=== PATIENT | male | born 1975 | race Caucasian/White ===

== ENCOUNTER 2016-08-05 18:25 | Emergency (ER) | payer BC ==
[2016-08-05] MEDS ORDERED: Ketorolac 30 MG/ML SDV IVPUSH ONE (18:50)
[2016-08-05] MEDS ORDERED: Morphine 10 MG/ML Syringe IVPUSH ONE (18:55)
[2016-08-05] MEDS ORDERED: Acetaminophen/oxyCODONE 325-5 MG Tab ONE (19:45)
[2016-08-05 20:27] VITALS: BP 119/62
--- NOTE | 2016-08-06 07:21 | CR ---
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 There are degenerative changes involving the glenohumeral joint. There is soft tissue calcification in the subdeltoid region consistent with calcific tendonitis or bursitis. There is narrowing of the subacromial space suggesting a chronic rotator cuff tear. No acute fracture or dislocation. [id number] [facility]
--- NOTE | 2016-08-06 07:25 | CT ---
DATE OF SERVICE: 08/05/16 CLINICAL DATA: Head injury UNENHANCED BRAIN CT: Multislice acquisition through the brain without IV contrast was performed. No masses or mass effect. No intracranial hemorrhage. No evidence of acute or subacute infarct. No fractures. There is mucosal thickening in the ethmoid and sphenoid sinuses consistent with chronic sinusitis. IMPRESSION: No acute intracranial abnormalities. [id number] [facility]
--- NOTE | 2016-08-06 07:30 | CT ---
DATE OF SERVICE: 08/05/16 CLINICAL DATA: Head injury UNENHANCED BRAIN CT: Multislice acquisition through the brain without IV contrast was performed. No masses or mass effect. No intracranial hemorrhage. No evidence of acute or subacute infarct. No fractures. There is mucosal thickening in the ethmoid and sphenoid sinuses consistent with chronic sinusitis. IMPRESSION: No acute intracranial abnormalities. [id number] [facility]
--- NOTE | 2016-08-06 07:33 | CT ---
DATE OF SERVICE: 08/05/16 CLINICAL DATA: Head injury FACIAL CT: Multislice axial acquisition was performed. There is mucosal thickening in the maxillary, ethmoid, sphenoid, and frontal sinuses consistent with chronic sinusitis. No air-fluid levels. No fractures. The globes and orbital contents appear intact. No other significant findings. IMPRESSION: No acute abnormalities. Findings consistent with chronic sinusitis. [id number] [facility]
--- NOTE | 2016-08-06 07:37 | CT ---
DATE OF SERVICE: 08/05/16 CLINICAL DATA: injury RIGHT SHOULDER CT: Multislice axial acquisition was performed. No acute fracture or dislocation. There are degenerative changes involving the AC joint. There is an osseous density adjacent to the AC joint consistent with old trauma. There are soft tissue calcifications in the subdeltoid region consistent with calcific tendonitis or bursitis. There are small sclerotic densities in the head of the humerus and coracoid process of the scapula most likely representing benign bone islands. IMPRESSION: No acute abnormalities. [id number] [facility]
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
== END 2016-08-05 21:15 | disposition home or self-care (01) ==
LOC: LB.ED 18:25
DX: S40.011A Contusion of right shoulder, initial encounter (principal); S00.531A Contusion of lip, initial encounter; X58.XXXA Exposure to other specified factors, initial encounter
CPT/HCPCS: 70450; 70486; 73030; 73200; 96374; 96375; 99284; A9270; J1885; J2270

== ENCOUNTER 2019-07-15 12:00 | Inpatient (IN) | payer BC ==
[2019-07-15] MEDS ORDERED: Sodium Chloride 0.9% 1,000 ML IV ONE (12:10)
[2019-07-15] MEDS ORDERED: Albuterol/Ipratropium 3.0-0.5 MG/3 ML Neb Soln NEB ONE (12:10)
[2019-07-15] MEDS ORDERED: methylPREDNISolone Sodium Succinate 125 MG/2 ML SDV IVPUSH ONE (12:10)
[2019-07-15] MEDS ORDERED: methylPREDNISolone Sodium Succinate 125 MG/2 ML SDV ONE (12:31)
[2019-07-15] MEDS ORDERED: Albuterol/Ipratropium 3.0-0.5 MG/3 ML Neb Soln ONE (12:32)
[2019-07-15] MEDS ORDERED: Sodium Chloride 0.9% 50 ML SDV FLUSH ONE (14:13)
[2019-07-15] MEDS ORDERED: Iopamidol 755 Mg/ML 100 ML Bottle IV SCH (14:15)
[2019-07-15] MEDS ORDERED: Aspirin 81 MG Tab.EC PO ONE (15:09)
[2019-07-15] MEDS: Enoxaparin 150 MG/1 ML Syringe SUBCUT SCH (16:22)
--- NOTE | 2019-07-15 16:41 | EDM.PDOC ---
ED HPI GENERAL MEDICAL PROBLEM - General Chief Complaint: General Stated Complaint: SOB, fever Time Seen by Provider: 07/15/19 12:05 Source of Information: Reports: Patient, Family History Limitations: Reports: No Limitations - History of Present Illness INITIAL COMMENTS - FREE TEXT/NARRATIVE: Fahad presented to the waiting room and I introduced myself. He stated that he feels exactly like when he had pneumonia previously. He has had some URI symptoms for at least 2 weeks on and off. He states that since at least he has felt worse in terms of his increased coughing. He feels that his chest wall is sore and he does endorse some sternal discomfort that seems to be pleuritic in nature. He also has had some nausea and vomiting over the last day or so and feels very dehydrated. He.denies any diaphoresis as well as any exertional chest discomfort. He is typically 1 to exert himself in terms of heavy physical labor without any issues. He has had no coronary arterial disease in the past, and has had at least paroxysmal atrial fibrillation since 2003. He has not had recent echocardiogram or cardiology follow-up. He was hospitalized here before for pneumonia. They would just as soon stay here instead of being transferred unless absolutely necessary. Treatments FIELD HEALTH OFFICER: Reports: Acetaminophen, NSAIDS Left Chest Pain Score (Numeric/FACES): 3 Left Shoulder Pain Score (Numeric/FACES): 3 - Related Data Allergies Allergy/AdvReac Type Severity Reaction Status Date / Time No Known Allergies Allergy Verified 07/15/19 16:19 Home Meds: Home Meds Levothyroxine Sodium 200 mcg PO ACBREAKFAST 08/05/16 [History] Past Medical History Cardiovascular History: Reports: Heart Murmur Musculoskeletal History: Reports: Other (See Below) Other Musculoskeletal History: Shoulder impingement Endocrine/Metabolic History: Reports: Hypothyroidism Oncologic (Cancer) History: Reports: Non-Hodgkin's Lymphoma - Past Surgical History HEENT Surgical History: Reports: Adenoidectomy, Tonsillectomy Neurological Surgical History: Reports: Thoracic Spine Musculoskeletal Surgical History: Reports: Shoulder Surgery Social & Family History - Family History Family Medical History: Noncontributory - Tobacco Use Smoking Status *Q: Never Smoker Second Hand Smoke Exposure: No - Caffeine Use Caffeine Use: Reports: None - Recreational Drug Use Recreational Drug Use: No ED ROS GENERAL - Review of Systems Review Of Systems: Comprehensive ROS is negative, except as noted in HPI. ED EXAM, GENERAL - Physical Exam Exam: See Below Exam Limited By: No Limitations General Appearance: Alert, Anxious, Mild Distress, Other (Does not appear septic but does appear to be mildly ill and a bit anxious upon arrival. He definitely appears volume depleted.) Eye Exam: Bilateral Eye: EOMI, PERRL Ears: Normal External Exam Nose: Normal Inspection Throat/Mouth: Normal Inspection, No Airway Compromise Head: Atraumatic, Normocephalic Neck: Normal Inspection, Supple, Non-Tender, Full Range of Motion Respiratory/Chest: No Respiratory Distress, Rales, Rhonchi, Wheezing, Other ( Lung sounds are remarkable for rales in the lower right base rhonchi throughout and end expiratory wheezes, all of which seem to improve significantly after DuoNeb) Cardiovascular: Tachycardia, Systolic Murmur (Very soft systolic murmur that is difficult to auscultate due to the above pulmonary sounds; he has been known to have a cardiac murmur for many many years), Irregularly Irregular GI/Abdominal: Normal Bowel Sounds, Soft, Non-Tender, No Distention, No Mass Back Exam: Normal Inspection, Full Range of Motion Extremities: Normal Inspection, Normal Range of Motion, Non-Tender, No Pedal Edema, Normal Capillary Refill Neurological: Alert, Oriented, CN II-XII Intact, Normal Cognition, Normal Gait, No Motor/Sensory Deficits Psychiatric: Normal Affect, Normal Mood Skin Exam: Warm, Dry, Intact, Normal Color, No Rash Lymphatic: No Adenopathy Course - Vital Signs Text/Narrative:: Discussed potential treatment options for try initially while in the waiting room assuming that he had a pneumonia more than anything. His case became complicated by a mildly elevated troponin. In review of his cardiac history, he had not had recent cardiac consultation or echocardiogram. His clinical picture did not fit with a pure pneumonia. I did call [facility] to discuss whether.we should continue to manage him here in [place]. After extensive discussion with the ER physician, we decided together to obtain pulmonary CTA as well as a recheck troponin. The receiving physician did not feel comfortable excepting because it did not appear to be cardiac related. I did call the ALS team from [place] and they arrived promptly. I apologized for the wait, and because his CT showed probable subsegmental pulmonary embolus with minimal filling defects of his segmental pulmonary arteries bilaterally, along with definite right lower lobe limited consolidation with air bronchogram. I discussed this with the radiologist personally, and explained this carefully to the patient and his . His delta troponin was actually less and the patient noted that his chest pain had been ongoing for at least a couple of weeks related to his coughing in his opinion. We discussed risks and benefits of trying to transfer him in because he is such a large gentleman, he certainly would not fit in a helicopter. The other ambulance crew in [place] was called out it, so I apologized to the gentleman for the inconvenience, and sent them back so there would at least be 1 ambulance available. I think them further time, but clearly our BLS team could bring him to the airport for fixed wing transport in case of any indication for such. He otherwise felt comfortable with monitoring here. His sats remained 99% and he felt significantly better after a nebulizer treatment and, actually a fluid bolus. His lactate appeared within normal limits, and his electrolytes and other labs were further reassuring. I discussed that I would be in-house overnight and that he should be sufficiently covered with Lovenox and antimicrobials. We decided together to watch him here carefully, particularly given that we would be able to provide an echocardiogram in the morning. I also explained anticoagulation options, and we could certainly start apixaban tomorrow after a couple of 1 mg/kg subcutaneous dosages of Lovenox. We will continue to monitor him, and our associate professor of radiology was kind enough to place an order for a creatinine and a recheck PE study in 6 weeks as recommended by radiology. Last Recorded V/S: Last Vital Signs Temp 100.3 F 07/15/19 15:21 Pulse 118 H 07/15/19 15:21 Resp 20 07/15/19 15:21 BP 140/81 07/15/19 15:21 Pulse Ox 97 07/15/19 15:21 - Orders/Labs/Meds Orders: Active Orders 24 hr Category Date Time Status EKG Documentation Completion [RC] ASDIRECTED Care 07/15/19 12:09 Active RT Aerosol Therapy [RC] ASDIRECTED Care 07/15/19 12:11 Active Chest 2V [CR] Stat Exams 07/15/19 12:09 Taken Chest w Cont [CT] Stat Exams 07/15/19 14:07 Taken CULTURE BLOOD [BC] Stat Lab 07/15/19 14:35 Received Enoxaparin [Lovenox] Med 07/15/19 15:15 Active 150 mg SUBCUT Q12H Iopamidol [Isovue-370 (76%)] Med 07/15/19 14:15 Active 100 ml IV . DIRECTED Isolation [COMM] Routine Oth 07/15/19 12:09 Active Medication Orders Enoxaparin Sodium (Lovenox) 150 mg SUBCUT Q12H KEVIN Last Admin: 07/15/19 16:22 Dose: 150 mg Iopamidol (Isovue-370 (76%)) 100 ml IV . DIRECTED [facility] Labs: Laboratory Tests 07/15/19 07/15/19 07/15/19 Range/Units 12:30 12:30 12:30 WBC 6.9 (4.0-11.0) K/uL RBC 5.05 (4.50-6.50) M/uL Hgb 14.5 (13.0-18.0) g/dL Hct 42.6 (40.0-54.0) % MCV 84 (76-96) fL MCH 28.7 (27.0-32.0) pg MCHC 34.0 (31.0-35.0) g/dL RDW 14.9 (11.0-16.0) % Plt Count 112 L D (150-400) K/uL MPV 11.3 H (6.0-10.0) fL Neut % (Auto) 91.4 H (45.0-70.0) % Lymph % (Auto) 4.0 L (20.0-40.0) % Baker % (Auto) 4.0 (3.0-10.0) % Eos % (Auto) 0.3 L (1.0-5.0) % Baso % (Auto) 0.3 (0.0-0.5) % Neut # (Auto) 6.33 (2.00-7.50) K/uL Lymph # (Auto) 0.28 L (1.50-4.00) K/uL Baker # (Auto) 0.28 (0.20-0.80) K/uL Eos # (Auto) 0.02 L (0.04-0.40) K/uL Baso # (Auto) 0.02 (0.02-0.10) K/uL D-Dimer, Quantitative (0-400) ng/mL Sodium (136-145) mmol/L Potassium (3.5-5.1) mmol/L Chloride (98-107) mmol/L Carbon Dioxide (21.0-32.0) mmol/L Anion Gap (5.0-15.0) mmol/L BUN (8-26) mg/dL Creatinine (0.70-1.30) mg/dL Est Cr Clr Drug Dosing mL/min Estimated GFR (MDRD) (>60) MLS/MIN BUN/Creatinine Ratio (6-25) Glucose (74-100) mg/dL Lactic Acid (0.4-2.0) mmol/L Calcium (8.5-10.1) mg/dL Magnesium (1.8-2.4) mg/dL Total Bilirubin (0.0-1.0) mg/dL AST (15-37) U/L ALT (12-78) U/L Alkaline Phosphatase (46-116) U/L Troponin I 0.264 H* D (0.000-0.060) ng/mL C-Reactive Protein 152.9 H (0.0-3.0) mg/L B-Natriuretic Peptide 2167 H (0-125) pg/mL Total Protein (6.4-8.2) g/dL Albumin (3.4-5.0) g/dL Globulin (2.2-4.2) g/dL Albumin/Globulin Ratio (0.8-2.0) Urine Color Urine Appearance (CLEAR) Urine pH (5.0-8.0) Ur Specific [place] (1.003-1.030) Urine Protein (NEGATIVE) mg/dL Urine Glucose (UA) (NEGATIVE) mg/dL Urine Ketones (NEGATIVE) mg/dL Urine Occult Blood (NEGATIVE) Urine Nitrite (NEGATIVE) Urine Bilirubin (NEGATIVE) Urine Urobilinogen (0.2-1.0) E.U./dL Ur Leukocyte Esterase (NEGATIVE) Urine RBC /HPF Urine WBC /HPF Ur Squamous Epith Cells /HPF Urine Mucus /HPF 07/15/19 07/15/19 07/15/19 Range/Units 12:52 13:22 14:35 WBC (4.0-11.0) K/uL RBC (4.50-6.50) M/uL Hgb (13.0-18.0) g/dL Hct (40.0-54.0) % MCV (76-96) fL MCH (27.0-32.0) pg MCHC (31.0-35.0) g/dL RDW (11.0-16.0) % Plt Count (150-400) K/uL MPV (6.0-10.0) fL Neut % (Auto) (45.0-70.0) % Lymph % (Auto) (20.0-40.0) % Baker % (Auto) (3.0-10.0) % Eos % (Auto) (1.0-5.0) % Baso % (Auto) (0.0-0.5) % Neut # (Auto) (2.00-7.50) K/uL Lymph # (Auto) (1.50-4.00) K/uL Baker # (Auto) (0.20-0.80) K/uL Eos # (Auto) (0.04-0.40) K/uL Baso # (Auto) (0.02-0.10) K/uL D-Dimer, Quantitative 807 H (0-400) ng/mL Sodium 138 (136-145) mmol/L Potassium 4.0 (3.5-5.1) mmol/L Chloride 101 (98-107) mmol/L Carbon Dioxide 27.0 (21.0-32.0) mmol/L Anion Gap 14.0 (5.0-15.0) mmol/L BUN 16 D (8-26) mg/dL Creatinine 1.07 D (0.70-1.30) mg/dL Est Cr Clr Drug Dosing 118.38 mL/min Estimated GFR (MDRD) > 60 (>60) MLS/MIN BUN/Creatinine Ratio 15.0 (6-25) Glucose 104 H (74-100) mg/dL Lactic Acid 1.5 (0.4-2.0) mmol/L Calcium 8.2 L (8.5-10.1) mg/dL Magnesium 2.1 (1.8-2.4) mg/dL Total Bilirubin 1.9 H D (0.0-1.0) mg/dL AST 30 (15-37) U/L ALT 42 (12-78) U/L Alkaline Phosphatase 91 (46-116) U/L Troponin I (0.000-0.060) ng/mL C-Reactive Protein (0.0-3.0) mg/L B-Natriuretic Peptide (0-125) pg/mL Total Protein 6.9 (6.4-8.2) g/dL Albumin 3.9 (3.4-5.0) g/dL Globulin 3.0 (2.2-4.2) g/dL Albumin/Globulin Ratio 1.3 (0.8-2.0) Urine Color Urine Appearance (CLEAR) Urine pH (5.0-8.0) Ur Specific [place] (1.003-1.030) Urine Protein (NEGATIVE) mg/dL Urine Glucose (UA) (NEGATIVE) mg/dL Urine Ketones (NEGATIVE) mg/dL Urine Occult Blood (NEGATIVE) Urine Nitrite (NEGATIVE) Urine Bilirubin (NEGATIVE) Urine Urobilinogen (0.2-1.0) E.U./dL Ur Leukocyte Esterase (NEGATIVE) Urine RBC /HPF Urine WBC /HPF Ur Squamous Epith Cells /HPF Urine Mucus /HPF 07/15/19 07/15/19 Range/Units 14:35 16:00 WBC (4.0-11.0) K/uL RBC (4.50-6.50) M/uL Hgb (13.0-18.0) g/dL Hct (40.0-54.0) % MCV (76-96) fL MCH (27.0-32.0) pg MCHC (31.0-35.0) g/dL RDW (11.0-16.0) % Plt Count (150-400) K/uL MPV (6.0-10.0) fL Neut % (Auto) (45.0-70.0) % Lymph % (Auto) (20.0-40.0) % Baker % (Auto) (3.0-10.0) % Eos % (Auto) (1.0-5.0) % Baso % (Auto) (0.0-0.5) % Neut # (Auto) (2.00-7.50) K/uL Lymph # (Auto) (1.50-4.00) K/uL Baker # (Auto) (0.20-0.80) K/uL Eos # (Auto) (0.04-0.40) K/uL Baso # (Auto) (0.02-0.10) K/uL D-Dimer, Quantitative (0-400) ng/mL Sodium (136-145) mmol/L Potassium (3.5-5.1) mmol/L Chloride (98-107) mmol/L Carbon Dioxide (21.0-32.0) mmol/L Anion Gap (5.0-15.0) mmol/L BUN (8-26) mg/dL Creatinine (0.70-1.30) mg/dL Est Cr Clr Drug Dosing mL/min Estimated GFR (MDRD) (>60) MLS/MIN BUN/Creatinine Ratio (6-25) Glucose (74-100) mg/dL Lactic Acid (0.4-2.0) mmol/L Calcium (8.5-10.1) mg/dL Magnesium (1.8-2.4) mg/dL Total Bilirubin (0.0-1.0) mg/dL AST (15-37) U/L ALT (12-78) U/L Alkaline Phosphatase (46-116) U/L Troponin I 0.256 H* (0.000-0.060) ng/mL C-Reactive Protein (0.0-3.0) mg/L B-Natriuretic Peptide (0-125) pg/mL Total Protein (6.4-8.2) g/dL Albumin (3.4-5.0) g/dL Globulin (2.2-4.2) g/dL Albumin/Globulin Ratio (0.8-2.0) Urine Color Yellow Urine Appearance Clear (CLEAR) Urine pH 5.5 (5.0-8.0) Ur Specific [place] 1.015 (1.003-1.030) Urine Protein 100 H (NEGATIVE) mg/dL Urine Glucose (UA) Negative (NEGATIVE) mg/dL Urine Ketones Trace H (NEGATIVE) mg/dL Urine Occult Blood Negative (NEGATIVE) Urine Nitrite Negative (NEGATIVE) Urine Bilirubin Small H (NEGATIVE) Urine Urobilinogen >=8.0 H (0.2-1.0) E.U./dL Ur Leukocyte Esterase Negative (NEGATIVE) Urine RBC Not seen /HPF Urine WBC 0-5 H /HPF Ur Squamous Epith Cells Few /HPF Urine Mucus Rare /HPF Meds: Medications Generic Name Dose Route Start Last Admin Trade Name Fredanial PRN Reason Stop Dose Admin Enoxaparin Sodium 150 mg 07/15/19 15:15 07/15/19 16:22 Lovenox SUBCUT 150 mg Q12H KEVIN Administration Iopamidol 100 ml 07/15/19 14:15 Isovue-370 (76%) IV . DIRECTED KEVIN Discontinued Medications Generic Name Dose Route Start Last Admin Trade Name Freq PRN Reason Stop Dose Admin Albuterol/Ipratropium 3 ml 07/15/19 12:10 07/15/19 12:32 Duoneb 3.0-0.5 Mg/3 Ml NEB 07/15/19 12:11 3 ml ONETIME ONE Administration Albuterol/Ipratropium Confirm 07/15/19 12:32 07/15/19 13:29 Duoneb 3.0-0.5 Mg/3 Ml Administered 07/15/19 12:33 Not Given Dose 3 ml .ROUTE .STK-MED ONE Aspirin 162 mg 07/15/19 15:09 07/15/19 16:23 Halfprin PO 07/15/19 15:10 162 mg ONETIME ONE Administration Sodium Chloride 1,000 mls @ 999 mls/hr 07/15/19 12:10 07/15/19 12:40 Normal Saline IV 07/15/19 13:10 999 mls/hr .BOLUS ONE Administration Methylprednisolone Sodium Succinate 125 mg 07/15/19 12:10 07/15/19 12:50 Solu-Medrol IVPUSH 07/15/19 12:11 125 mg ONETIME ONE Administration Methylprednisolone Sodium Succinate Confirm 07/15/19 12:31 Solu-Medrol Administered 07/15/19 12:32 Dose 125 mg .ROUTE .STK-MED ONE Sodium Chloride 50 ml 07/15/19 14:13 Normal Saline FLUSH 07/15/19 14:14 ONETIME ONE Departure - Departure Time of Disposition: 15:15 Disposition: Admitted As Inpatient 65 Condition: Fair Clinical Impression: PE, Pulmonary embolism - Discharge Information Referrals: PCP,None [Primary Care Provider] - Sepsis Event Note - Evaluation Sepsis Screening Result: Possible Sepsis Risk - Focused Exam Vital Signs: Vital Signs Temp Pulse Resp BP Pulse Ox 07/15/19 15:21 100.3 F 118 H 20 140/81 97 07/15/19 12:17 100.8 F H 103 H 20 146/100 H 98 Date Exam was Performed: 07/15/19 Time Exam was Performed: 16:36 - My Orders Last 24 Hours: My Active Orders 07/15/19 12:09 EKG Documentation Completion [RC] ASDIRECTED Chest 2V [CR] Stat Isolation [COMM] Routine 07/15/19 12:11 RT Aerosol Therapy [RC] ASDIRECTED 07/15/19 14:07 Chest w Cont [CT] Stat 07/15/19 14:15 Iopamidol [Isovue-370 (76%)] 100 ml IV . DIRECTED 07/15/19 14:35 CULTURE BLOOD [BC] Stat 07/15/19 15:15 Enoxaparin [Lovenox] 150 mg SUBCUT Q12H - Assessment/Plan Last 24 Hours: My Active Orders 07/15/19 12:09 EKG Documentation Completion [RC] ASDIRECTED Chest 2V [CR] Stat Isolation [COMM] Routine 07/15/19 12:11 RT Aerosol Therapy [RC] ASDIRECTED 07/15/19 14:07 Chest w Cont [CT] Stat 07/15/19 14:15 Iopamidol [Isovue-370 (76%)] 100 ml IV . DIRECTED 07/15/19 14:35 CULTURE BLOOD [BC] Stat 07/15/19 15:15 Enoxaparin [Lovenox] 150 mg SUBCUT Q12H
[2019-07-15] MEDS ORDERED: Albuterol/Ipratropium 3.0-0.5 MG/3 ML Neb Soln NEB PRN (17:04)
[2019-07-15] MEDS ORDERED: HYDROmorphone 2 MG/ML Syringe IV PRN (17:04)
[2019-07-15] MEDS ORDERED: Ondansetron 4 MG/2 ML SDV IV PRN (17:04)
[2019-07-15] MEDS ORDERED: Sodium Chloride 0.9% 500 ML IV ONE (17:04)
[2019-07-15] MEDS ORDERED: D5 1/2 NS w/ 20 mEq/L KCl 1,000 ML IV SCH (17:15)
--- NOTE | 2019-07-15 18:31 | CR ---
DATE OF SERVICE: 07/15/19 CLINICAL DATA: fever PA AND LATERAL CHEST: Comparison is made to a prior exam dated 11/21/14. The heart size is normal. There is a poorly defined infiltrate with consolidation in the right lower lobe , consistent with pneumonia. The lungs are otherwise clear. No pneumothorax. No pleural effusions. Follow-up exam is recommended. [id number] MTDD
[2019-07-15] MEDS: Piperacillin/Tazobactam 4.5 GM in Sodium Chloride 0.9% 100 ML IV SCH (19:24)
--- NOTE | 2019-07-15 19:44 | PCM.HP.2 ---
H&P History of Present Illness - General Date of Service: 07/15/19 Admit Problem/Dx: Admission Diagnosis/Problem Admission Diagnosis/Problem PE, Pulmonary embolism - History of Present Illness Initial Comments - Free Text/Narative: Please see previous ER documentation for details and, obviously, I wish to accept that note as my H&P without any modifications. Left Chest Pain Score (Numeric/FACES): 3 Left Shoulder Pain Score (Numeric/FACES): 1 - Related Data Allergies/Adverse Reactions: Allergies Allergy/AdvReac Type Severity Reaction Status Date / Time No Known Allergies Allergy Verified 07/16/19 21:40 Home Medications: Home Meds Levothyroxine Sodium 200 mcg PO ACBREAKFAST 08/05/16 [History] Amoxicillin 500 mg PO BID 07/16/19 [History] Amoxicillin/Potassium Clav [Augmentin 875-125 Tablet] 1 tab PO BID 07/16/19 [ History] Apixaban [Eliquis] 10 mg PO DAILY 07/16/19 [History] Past Medical History HEENT History: Reports: None Cardiovascular History: Reports: Heart Murmur Musculoskeletal History: Reports: Osteoarthritis, Other (See Below) Other Musculoskeletal History: Shoulder impingement Endocrine/Metabolic History: Reports: Hypothyroidism Oncologic (Cancer) History: Reports: Non-Hodgkin's Lymphoma - Infectious Disease History Infectious Disease History: Reports: Shingles - Past Surgical History HEENT Surgical History: Reports: None Cardiovascular Surgical History: Reports: None Endocrine Surgical History: Reports: None Neurological Surgical History: Reports: Thoracic Spine Musculoskeletal Surgical History: Reports: Shoulder Surgery, Other (See Below) Other Musculoskeletal Surgeries/Procedures:: Back Surgery 06/2008 Social & Family History - Family History Family Medical History: Noncontributory - Tobacco Use Smoking Status *Q: Never Smoker Second Hand Smoke Exposure: No - Caffeine Use Caffeine Use: Reports: Soda - Alcohol Use Days Per Week of Alcohol Use: 1 Number of Drinks Per Day: 1 Total Drinks Per Week: 1 Date of Last Drink: 07/10/19 - Recreational Drug Use Recreational Drug Use: No H&P Review of Systems - Review of Systems: Review Of Systems: Comprehensive ROS is negative, except as noted in HPI. Exam - Exam Exam: See Below - Vital Signs Vital Signs: Last Vital Signs Temp 100.6 F 07/15/19 16:56 Pulse 121 H 03/15/20 16:56 Resp 20 07/15/19 16:56 BP 81/47 L 07/15/19 16:56 Pulse Ox 95 07/15/19 16:56 Weight: 33 lb 3.2 oz - Patient Data Lab Results Last 24 hrs: Laboratory Results - last 24 hr 07/15/19 07/15/19 07/15/19 Range/Units 12:30 12:30 12:30 WBC 6.9 (4.0-11.0) K/uL RBC 5.05 (4.50-6.50) M/uL Hgb 14.5 (13.0-18.0) g/dL Hct 42.6 (40.0-54.0) % MCV 84 (76-96) fL MCH 28.7 (27.0-32.0) pg MCHC 34.0 (31.0-35.0) g/dL RDW 14.9 (11.0-16.0) % Plt Count 112 L D (150-400) K/uL MPV 11.3 H (6.0-10.0) fL Neut % (Auto) 91.4 H (45.0-70.0) % Lymph % (Auto) 4.0 L (20.0-40.0) % [place] % (Auto) 4.0 (3.0-10.0) % Eos % (Auto) 0.3 L (1.0-5.0) % Baso % (Auto) 0.3 (0.0-0.5) % Neut # (Auto) 6.33 (2.00-7.50) K/uL Lymph # (Auto) 0.28 L (1.50-4.00) K/uL [place] # (Auto) 0.28 (0.20-0.80) K/uL Eos # (Auto) 0.02 L (0.04-0.40) K/uL Baso # (Auto) 0.02 (0.02-0.10) K/uL D-Dimer, Quantitative (0-400) ng/mL Sodium (136-145) mmol/L Potassium (3.5-5.1) mmol/L Chloride (98-107) mmol/L Carbon Dioxide (21.0-32.0) mmol/L Anion Gap (5.0-15.0) mmol/L BUN (8-26) mg/dL Creatinine (0.70-1.30) mg/dL Est Cr Clr Drug Dosing mL/min Estimated GFR (MDRD) (>60) MLS/MIN BUN/Creatinine Ratio (6-25) Glucose (74-100) mg/dL Lactic Acid (0.4-2.0) mmol/L Calcium (8.5-10.1) mg/dL Magnesium (1.8-2.4) mg/dL Total Bilirubin (0.0-1.0) mg/dL AST (15-37) U/L ALT (12-78) U/L Alkaline Phosphatase (46-116) U/L Troponin I 0.264 H* D (0.000-0.060) ng/mL C-Reactive Protein 152.9 H (0.0-3.0) mg/L B-Natriuretic Peptide 2167 H (0-125) pg/mL Total Protein (6.4-8.2) g/dL Albumin (3.4-5.0) g/dL Globulin (2.2-4.2) g/dL Albumin/Globulin Ratio (0.8-2.0) Urine Color Urine Appearance (CLEAR) Urine pH (5.0-8.0) Ur Specific [place] (1.003-1.030) Urine Protein (NEGATIVE) mg/dL Urine Glucose (UA) (NEGATIVE) mg/dL Urine Ketones (NEGATIVE) mg/dL Urine Occult Blood (NEGATIVE) Urine Nitrite (NEGATIVE) Urine Bilirubin (NEGATIVE) Urine Urobilinogen (0.2-1.0) E.U./dL Ur Leukocyte Esterase (NEGATIVE) Urine RBC /HPF Urine WBC /HPF Ur Squamous Epith Cells /HPF Urine Mucus /HPF 07/15/19 07/15/19 07/15/19 Range/Units 12:52 13:22 14:35 WBC (4.0-11.0) K/uL RBC (4.50-6.50) M/uL Hgb (13.0-18.0) g/dL Hct (40.0-54.0) % MCV (76-96) fL MCH (27.0-32.0) pg MCHC (31.0-35.0) g/dL RDW (11.0-16.0) % Plt Count (150-400) K/uL MPV (6.0-10.0) fL Neut % (Auto) (45.0-70.0) % Lymph % (Auto) (20.0-40.0) % [place] % (Auto) (3.0-10.0) % Eos % (Auto) (1.0-5.0) % Baso % (Auto) (0.0-0.5) % Neut # (Auto) (2.00-7.50) K/uL Lymph # (Auto) (1.50-4.00) K/uL [place] # (Auto) (0.20-0.80) K/uL Eos # (Auto) (0.04-0.40) K/uL Baso # (Auto) (0.02-0.10) K/uL D-Dimer, Quantitative 807 H (0-400) ng/mL Sodium 138 (136-145) mmol/L Potassium 4.0 (3.5-5.1) mmol/L Chloride 101 (98-107) mmol/L Carbon Dioxide 27.0 (21.0-32.0) mmol/L Anion Gap 14.0 (5.0-15.0) mmol/L BUN 16 D (8-26) mg/dL Creatinine 1.07 D (0.70-1.30) mg/dL Est Cr Clr Drug Dosing 118.38 mL/min Estimated GFR (MDRD) > 60 (>60) MLS/MIN BUN/Creatinine Ratio 15.0 (6-25) Glucose 104 H (74-100) mg/dL Lactic Acid 1.5 (0.4-2.0) mmol/L Calcium 8.2 L (8.5-10.1) mg/dL Magnesium 2.1 (1.8-2.4) mg/dL Total Bilirubin 1.9 H D (0.0-1.0) mg/dL AST 30 (15-37) U/L ALT 42 (12-78) U/L Alkaline Phosphatase 91 (46-116) U/L Troponin I (0.000-0.060) ng/mL C-Reactive Protein (0.0-3.0) mg/L B-Natriuretic Peptide (0-125) pg/mL Total Protein 6.9 (6.4-8.2) g/dL Albumin 3.9 (3.4-5.0) g/dL Globulin 3.0 (2.2-4.2) g/dL Albumin/Globulin Ratio 1.3 (0.8-2.0) Urine Color Urine Appearance (CLEAR) Urine pH (5.0-8.0) Ur Specific [place] (1.003-1.030) Urine Protein (NEGATIVE) mg/dL Urine Glucose (UA) (NEGATIVE) mg/dL Urine Ketones (NEGATIVE) mg/dL Urine Occult Blood (NEGATIVE) Urine Nitrite (NEGATIVE) Urine Bilirubin (NEGATIVE) Urine Urobilinogen (0.2-1.0) E.U./dL Ur Leukocyte Esterase (NEGATIVE) Urine RBC /HPF Urine WBC /HPF Ur Squamous Epith Cells /HPF Urine Mucus /HPF 07/15/19 07/15/19 Range/Units 14:35 16:00 WBC (4.0-11.0) K/uL RBC (4.50-6.50) M/uL Hgb (13.0-18.0) g/dL Hct (40.0-54.0) % MCV (76-96) fL MCH (27.0-32.0) pg MCHC (31.0-35.0) g/dL RDW (11.0-16.0) % Plt Count (150-400) K/uL MPV (6.0-10.0) fL Neut % (Auto) (45.0-70.0) % Lymph % (Auto) (20.0-40.0) % [place] % (Auto) (3.0-10.0) % Eos % (Auto) (1.0-5.0) % Baso % (Auto) (0.0-0.5) % Neut # (Auto) (2.00-7.50) K/uL Lymph # (Auto) (1.50-4.00) K/uL [place] # (Auto) (0.20-0.80) K/uL Eos # (Auto) (0.04-0.40) K/uL Baso # (Auto) (0.02-0.10) K/uL D-Dimer, Quantitative (0-400) ng/mL Sodium (136-145) mmol/L Potassium (3.5-5.1) mmol/L Chloride (98-107) mmol/L Carbon Dioxide (21.0-32.0) mmol/L Anion Gap (5.0-15.0) mmol/L BUN (8-26) mg/dL Creatinine (0.70-1.30) mg/dL Est Cr Clr Drug Dosing mL/min Estimated GFR (MDRD) (>60) MLS/MIN BUN/Creatinine Ratio (6-25) Glucose (74-100) mg/dL Lactic Acid (0.4-2.0) mmol/L Calcium (8.5-10.1) mg/dL Magnesium (1.8-2.4) mg/dL Total Bilirubin (0.0-1.0) mg/dL AST (15-37) U/L ALT (12-78) U/L Alkaline Phosphatase (46-116) U/L Troponin I 0.256 H* (0.000-0.060) ng/mL C-Reactive Protein (0.0-3.0) mg/L B-Natriuretic Peptide (0-125) pg/mL Total Protein (6.4-8.2) g/dL Albumin (3.4-5.0) g/dL Globulin (2.2-4.2) g/dL Albumin/Globulin Ratio (0.8-2.0) Urine Color Yellow Urine Appearance Clear (CLEAR) Urine pH 5.5 (5.0-8.0) Ur Specific [place] 1.015 (1.003-1.030) Urine Protein 100 H (NEGATIVE) mg/dL Urine Glucose (UA) Negative (NEGATIVE) mg/dL Urine Ketones Trace H (NEGATIVE) mg/dL Urine Occult Blood Negative (NEGATIVE) Urine Nitrite Negative (NEGATIVE) Urine Bilirubin Small H (NEGATIVE) Urine Urobilinogen >=8.0 H (0.2-1.0) E.U./dL Ur Leukocyte Esterase Negative (NEGATIVE) Urine RBC Not seen /HPF Urine WBC 0-5 H /HPF Ur Squamous Epith Cells Few /HPF Urine Mucus Rare /HPF Result Diagrams: 07/16/19 07:20 07/16/19 07:20 Fer Results Last 24 hrs: Microbiology 07/15/19 12:30 Influenza Type A Antigen Screen - Final Nasal, Unspecified NEGATIVE INFLUENZA A VIRUS AG REFERENCE RANGE: NEGATIVE Influenza Type B Antigen Screen - Final NEGATIVE INFLUENZA B VIRUS AG REFERENCE RANGE: NEGATIVE Sepsis Event Note - Evaluation Sepsis Screening Result: No Definite Risk - Focused Exam Vital Signs: Vital Signs Temp Pulse Resp BP Pulse Ox 07/15/19 16:56 100.6 F 121 H 20 81/47 L 95 07/15/19 15:21 100.3 F 118 H 20 140/81 97 07/15/19 12:17 100.8 F H 103 H 20 146/100 H 98 Date Exam was Performed: 07/19/19 Time Exam was Performed: 17:19 Orders Last 24hrs: Active Orders 24 hr Category Date Time Status Patient Status [ADT] Routine ADT 07/15/19 17:04 Active Cardiac Monitoring [RC] CONTINUOUS Care 07/15/19 17:05 Active EKG Documentation Completion [RC] ASDIRECTED Care 07/15/19 12:09 Active Height and Weight [RC] UPON Care 07/15/19 17:04 Active Intake and Output [RC] QSHIFT Care 07/15/19 17:05 Active Oxygen Therapy [RC] PRN Care 07/15/19 17:04 Active RT Aerosol Therapy [RC] ASDIRECTED Care 07/15/19 12:11 Active Up With Assistance [RC] ASDIRECTED Care 07/15/19 17:04 Active VTE/DVT Education [RC] DAILY Care 07/15/19 17:04 Active Vital Signs [RC] Q4H Care 07/15/19 17:04 Active Regular Diet [DIET] Diet 07/15/19 Breakfast Ordered Chest w Cont [CT] Stat Exams 07/15/19 14:07 Taken Echo Comp wo Cont [US] Routine Exams 07/15/19 17:12 Ordered BASIC METABOLIC PANEL,BMP [CHEM] AM Lab 07/16/19 05:11 Ordered CBC W/O DIFF,HEMOGRAM [HEME] AM Lab 07/16/19 05:11 Ordered CULTURE BLOOD [BC] Stat Lab 07/15/19 14:35 Received INR,PT,PROTHROMBIN TIME [COAG] AM Lab 07/16/19 05:11 Ordered PTT,PARTIAL THROMBOPLSTIN TIME [COAG] AM Lab 07/16/19 05:11 Ordered TROPONIN I [CHEM] AM Lab 07/16/19 05:11 Ordered Acetaminophen [Tylenol] Med 07/15/19 17:04 Active 650 mg PO Q4H PRN Albuterol/Ipratropium [DuoNeb 3.0-0.5 MG/3 ML] Med 07/15/19 17:04 Active 3 ml NEB QID PRN D5 1/2 NS w/ 20 mEq/L KCl 1,000 ml Med 07/15/19 17:15 Active IV ASDIRECTED Enoxaparin [Lovenox] Med 07/15/19 15:15 Active 150 mg SUBCUT Q12H HYDROmorphone [Dilaudid] Med 07/15/19 17:04 Active 0.5 mg IV Q2H PRN Iopamidol [Isovue-370 (76%)] Med 07/15/19 14:15 Active 100 ml IV . DIRECTED Ondansetron [Zofran] Med 07/15/19 17:04 Active 4 mg IV Q6H PRN Piperacillin/Tazobactam [Zosyn] 4.5 gm Med 07/15/19 18:00 Active Sodium Chloride 0.9% [Normal Saline] 100 ml IV Q6H Isolation [COMM] Routine Oth 07/15/19 12:09 Active Resuscitation Status Routine Resus Stat 07/15/19 17:04 Ordered EKG 12 Lead [EK] AM Ther 07/16/19 05:11 Ordered Medication Orders Acetaminophen (Tylenol) 650 mg PO Q4H PRN PRN Reason: Pain (Mild 1-3)/fever Albuterol/Ipratropium (Duoneb 3.0-0.5 Mg/3 Ml) 3 ml NEB QID PRN PRN Reason: Shortness Of Breath/wheezing Enoxaparin Sodium (Lovenox) 150 mg SUBCUT Q12H [facility] Last Admin: 07/15/19 16:22 Dose: 150 mg Hydromorphone HCl (Dilaudid) 0.5 mg IV Q2H PRN PRN Reason: Pain (severe 7-10) Potassium Chloride/Dextrose/Sod Cl (D5 1/2 Ns W/ 20 Meq/L Kcl) 1,000 mls @ 175 mls/hr IV ASDIRECTED KEVIN Piperacillin Sod/Tazobactam (Sod 4.5 gm/ Sodium Chloride) 100 mls @ 200 mls/hr IV Q6H [facility] Last Admin: 07/15/19 19:24 Dose: 200 mls/hr Iopamidol (Isovue-370 (76%)) 100 ml IV . DIRECTED KEVIN Ondansetron HCl (Zofran) 4 mg IV Q6H PRN PRN Reason: Nausea/Vomiting
[2019-07-15] MEDS: Acetaminophen 325 MG Tab PO PRN (21:30)
[2019-07-16] MEDS: Piperacillin/Tazobactam 4.5 GM in Sodium Chloride 0.9% 100 ML IV SCH ×3 (00:39→12:24)
[2019-07-16] MEDS: Enoxaparin 150 MG/1 ML Syringe SUBCUT SCH (05:50)
[2019-07-16] MEDS: Acetaminophen 325 MG Tab PO PRN (07:50)
[2019-07-16] MEDS ORDERED: Ketorolac 30 MG/ML SDV ONE (09:22)
[2019-07-16] MEDS ORDERED: HYDROmorphone 2 MG/ML SDV ONE (09:29)
[2019-07-16] MEDS ORDERED: Ketorolac 60 MG/2 ML SDV IVPUSH ONE (09:35)
[2019-07-16] MEDS ORDERED: Apixaban 5 MG Tab PO SCH (10:00)
[2019-07-16 10:06] VITALS: BP 123/73; PULSE 88
--- NOTE | 2019-07-16 14:01 | CT ---
DATE OF SERVICE: 07/15/2019 CLINICAL DATA: Rule out PE Enhanced chest CT: Multislice acquisition through the chest with IV contrast was performed. Comparison is made to a prior unenhanced chest CT dated March 2016. There are subtle defects within the segmental and subsegmental pulmonary arteries suspicious for PE. No pneumothorax. No aortic aneurysm or dissection. There are scattered ground glass opacities in both lungs with an extensive area of consolidation involving the right lower lobe. There is also a small area of consolidation involving the right lower lobe. There is also a small area of consolidation involving the left lower lobe. These findings are consistent with pneumonia. There are small bilateral pleural effusions. The heart is mildly enlarged. There is a small pericardial effusions. No hilar or mediastinal adenopathy. There is degenerative disc disease throughout the thoracic spine. The patient's physician was notified of the findings by telephone and by virtual radiologic preliminary radiology report. [facility] [place] [facility]
--- NOTE | 2019-07-19 10:07 | PCM.DCSUM1 ---
Discharge Summary - Hospital Course Free Text/Narrative:: Fahad had a complex presentation of shortness of breath. He was concerned that he had recurrence of pneumonia. He did have some pleuritic chest discomfort. He also was noted to have atrial fibrillation with rapid ventricular response. In the ER he was noted to have a mildly elevated troponin. His type B natruretic peptide was significantly high, but he appeared to be pretty dehydrated. He was provided with a fluid bolus. This helped him to feel significantly better. He was admitted on Zosyn and went on to have resolution of his profound malaise. He rested well overnight. He was given Lovenox 1 mg/ kg subcutaneously on 2 occasions 12 hours apart, and then about 6 hours after this, Eliquis was started. He seemed to tolerate this fine. He stayed until after lunch to get another dose of IV antibiotics and, was discharged home on a combination of amoxicillin and Augmentin to mimic Augmentin XR, especially given he has fairly large body habitus. Unfortunately, try went home and spiked a fever of 103. He was noted to be having some visual hallucinations and felt awful and re-presented to the ER as he was instructed and was transferred to [place] for further coordination of care. - Discharge Data Discharge Date: 07/16/19 Discharge Disposition: Home, Self-Care 01 Condition: Fair - Referral to Home Health Primary Care Physician: PCP None - Patient Instructions Diet: Regular Diet as Tolerated Activity: As Tolerated - Discharge Plan Home Medications: Home Meds Levothyroxine Sodium 200 mcg PO ACBREAKFAST 08/05/16 [History] Amoxicillin 500 mg PO BID 07/16/19 [History] Amoxicillin/Potassium Clav [Augmentin 875-125 Tablet] 1 tab PO BID 07/16/19 [ History] Apixaban [Eliquis] 10 mg PO DAILY 07/16/19 [History] Patient Handouts: Amoxicillin; Clavulanic Acid tablets, Amoxicillin capsules or tablets, Pulmonary Embolism, Apixaban oral tablets Forms: ED Department Discharge Referrals: PCP,None [Primary Care Provider] - - Discharge Summary/Plan Comment DC Time >30 min.: No - Patient Data Vitals - Most Recent: Last Vital Signs Temp 98.3 F 07/16/19 08:00 Pulse 88 07/16/19 08:00 Resp 18 07/16/19 04:00 BP 123/73 07/16/19 08:00 Pulse Ox 97 07/16/19 08:00 Weight - Most Recent: 33 lb 3.2 oz WIL Results - Last 24 hrs: Microbiology 07/16/19 08:28 Gram Stain - Final Sputum - Expectorated Sputum Culture - Preliminary Normal Almaz 07/15/19 14:35 Aerobic Blood Culture - Final Blood Staphylococcus Epidermidis Anaerobic Blood Culture - Preliminary NO GROWTH AFTER 3 DAYS Med Orders - Current: Current Medications Discontinued Medications Acetaminophen (Tylenol) 650 mg PO Q4H PRN PRN Reason: Pain (Mild 1-3)/fever Last Admin: 07/16/19 07:50 Dose: 650 mg Albuterol/Ipratropium (Duoneb 3.0-0.5 Mg/3 Ml) 3 ml NEB ONETIME ONE Stop: 07/15/19 12:11 Last Admin: 07/15/19 12:32 Dose: 3 ml Albuterol/Ipratropium (Duoneb 3.0-0.5 Mg/3 Ml) Confirm Administered Dose 3 ml .ROUTE .STK-MED ONE Stop: 07/15/19 12:33 Last Admin: 07/15/19 13:29 Dose: Not Given Albuterol/Ipratropium (Duoneb 3.0-0.5 Mg/3 Ml) 3 ml NEB QID PRN PRN Reason: Shortness Of Breath/wheezing Apixaban (Eliquis) 10 mg PO BID [facility] Stop: 07/23/19 10:00 Aspirin (Halfprin) 162 mg PO ONETIME ONE Stop: 07/15/19 15:10 Last Admin: 07/15/19 16:23 Dose: 162 mg Enoxaparin Sodium (Lovenox) 150 mg SUBCUT Q12H [facility] Last Admin: 07/16/19 05:50 Dose: 150 mg Hydromorphone HCl (Dilaudid) 0.5 mg IV Q2H PRN PRN Reason: Pain (severe 7-10) Last Admin: 07/16/19 09:31 Dose: 0.5 mg Hydromorphone HCl (Dilaudid) Confirm Administered Dose 2 mg .ROUTE .STK-MED ONE Stop: 07/16/19 09:30 Last Admin: 07/16/19 09:29 Dose: Not Given Sodium Chloride (Normal Saline) 1,000 mls @ 999 mls/hr IV .BOLUS ONE Stop: 07/15/19 13:10 Last Admin: 07/15/19 12:40 Dose: 999 mls/hr Sodium Chloride (Normal Saline) 500 mls @ 499 mls/hr IV .BOLUS ONE Stop: 07/15/19 18:04 Last Admin: 07/15/19 17:30 Dose: 499 mls/hr Potassium Chloride/Dextrose/Sod Cl (D5 1/2 Ns W/ 20 Meq/L Kcl) 1,000 mls @ 175 mls/hr IV ASDIRECTED [facility] Last Admin: 07/15/19 21:18 Dose: 175 mls/hr Piperacillin Sod/Tazobactam (Sod 4.5 gm/ Sodium Chloride) 100 mls @ 200 mls/hr IV Q6H [facility] Last Admin: 07/16/19 12:24 Dose: 200 mls/hr Iopamidol (Isovue-370 (76%)) 100 ml IV . DIRECTED [facility] Ketorolac Tromethamine (Toradol) Confirm Administered Dose 30 mg .ROUTE .STK- MED ONE Stop: 07/16/19 09:23 Last Admin: 07/16/19 09:30 Dose: 10 mg Ketorolac Tromethamine (Toradol) 10 mg IVPUSH ONETIME ONE Stop: 07/16/19 09:36 Last Admin: 07/16/19 10:56 Dose: Not Given Methylprednisolone Sodium Succinate (Solu-Medrol) 125 mg IVPUSH ONETIME ONE Stop: 07/15/19 12:11 Last Admin: 07/15/19 12:50 Dose: 125 mg Methylprednisolone Sodium Succinate (Solu-Medrol) Confirm Administered Dose 125 mg .ROUTE .STK-MED ONE Stop: 07/15/19 12:32 Last Admin: 07/15/19 19:30 Dose: Not Given Ondansetron HCl (Zofran) 4 mg IV Q6H PRN PRN Reason: Nausea/Vomiting Sodium Chloride (Normal Saline) 50 ml FLUSH ONETIME ONE Stop: 07/15/19 14:14
== END 2019-07-16 13:38 | disposition home or self-care (01) | DRG 134 ==
LOC: LB.ED 12:00 → UNDOADMIN 16:30 → LB.MS 16:30
PROVIDERS: ADMIT Family Medicine; ATTEND Family Medicine
DX: I26.99 Other pulmonary embolism without acute cor pulmonale (principal); M19.90 Unspecified osteoarthritis, unspecified site; E03.9 Hypothyroidism, unspecified; Z98.890 Other specified postprocedural states; Z79.890 Hormone replacement therapy; Z79.2 Long term (current) use of antibiotics; Z79.01 Long term (current) use of anticoagulants
CPT/HCPCS: 36415; 71046; 71260; 80048; 80053; 81001; 83605; 83735; 83880; 84484; 85025; 85027; 85379; 85610; 85730; 86140; 87040; 87070; 87186; 87205; 87804; 87804-59; 93005; 93306; 96365; 96366; 96372; 96375; 99285-25; A9270-GY; J1170; J1650; J1885; J2543; J2930; J3480; J7030; J7040; J7050; J7620-GY

== ENCOUNTER 2019-07-16 18:35 | Emergency (ER) | payer BC ==
[~2019-07-16 18:35] MED LIST: Diltiazem 50 MG/10 ML SDV IVPUSH ONE
[2019-07-16] MEDS ORDERED: Piperacillin/Tazobactam 3.375 GM in Sodium Chloride 0.9% 100 ML IV SCH (19:15)
[2019-07-16] MEDS ORDERED: Acetaminophen 325 MG Tab PO ONE (19:25)
[2019-07-16] MEDS ORDERED: Sodium Chloride 0.9% 1,000 ML IV SCH (19:32)
[2019-07-16 20:57] VITALS: BP 124/83; PULSE 135
[2019-07-16] MEDS ORDERED: Piperacillin/Tazobactam 4.5 GM in Sodium Chloride 0.9% 100 ML IV SCH (22:00)
--- NOTE | 2019-07-16 23:36 | ER ---
CHIEF COMPLAINT: Shortness of breath and fever. HISTORY OF PRESENT ILLNESS: The patient is a 44-year-old white male who was seen in the emergency department yesterday and was diagnosed with pneumonia and pulmonary embolism. He was discharged home on anticoagulants. He was supposed to start Eliquis after discharge. He did not get a chance to get his Eliquis filled and taken. Several hours after going home, he developed shortness of breath and rapid heart rate. He also has noticed a high fever. He also mentions that he has seen things that are not there. He realizes they were not there, but he still has the feeling that there is something there that is not. He states that he started hallucinating yesterday while in the emergency department prior to be admitted for observation overnight. PAST MEDICAL HISTORY: 1. Cardiovascular disease with heart murmur. 2. Shoulder impingement syndrome. 3. Hypothyroidism. 4. Non-Hodgkin's lymphoma. PAST SURGICAL HISTORY: 1. Adenoidectomy. 2. Tonsillectomy. 3. Thoracic spine surgery. 4. Shoulder surgery. SOCIAL HISTORY: The patient is a nonsmoker. ALLERGIES: NO KNOWN ALLERGIES. CURRENT MEDICATIONS: Levothyroxine 200 mcg daily; Eliquis which is ordered, but the patient has not taken yet; Zosyn last dose at around noon today. The patient was prescribed amoxicillin upon discharge, treated with Lovenox while being treated as an observation patient. REVIEW OF SYSTEMS: GENERAL: Positive for fever, positive for chills. RESPIRATIONS: Positive for cough and shortness of breath. CARDIAC: The patient denies chest pain at this time. Did have elevated troponin yesterday. GASTROINTESTINAL: No nausea or vomiting. GENITOURINARY: No dysuria or hematuria. PHYSICAL EXAMINATION: VITAL SIGNS: Temperature 103; pulse 110 to 140 initially, irregular rate going up and down; respirations 30, blood pressure 135/84. GENERAL: The patient is an alert 44-year-old white male, in mild respiratory distress. HEENT: Within normal limits. NECK: Supple without JVD. CHEST: Nontender. LUNGS: Crackles in the right base, otherwise clear. ABDOMEN: Soft, nontender. SKIN: Without rash. EXTREMITIES: Nontender. Normal range of motion. IMAGING: EKG, atrial fibrillation with left anterior fascicular block. CT scan revealed small right pleural effusion, mild cardiomegaly, continued right basilar opacity, less dense than prior exam yesterday. Exam the day before revealed multiple subtle filling defects within the secondary pulmonary arteries bilaterally concerning for acute pulmonary emboli, mild cardiomegaly and findings which can be seen with right heart strain. Dense consolidation right lower lobe with scattered air bronchograms. There are bilateral ground-glass and nodular opacities right greater than left. Findings typically reflect nonspecific inflammatory and infectious change. Followup evaluation in 4 to 6 weeks is suggested as neoplasm cannot be excluded. This was the site of prior neoplasm as the patient had a history of non-Hodgkin's lymphoma. LABORATORY DATA: BMP: Anion gap 15.7, glucose 124, BUN 27, creatinine 1.31, BUN and creatinine ratio 20:6, calcium 8.1, protein total 6.7, albumin 3.3, globulin 3.4, troponin I of 0.195, lactic acid 1.8. CBC: WBC 8300, H and H 13.7/39.3. DIAGNOSES: 1. Right lower lobe consolidation with pneumonia versus recurrence of neoplasm with CT findings consistent with pulmonary embolism. 2. Atrial fibrillation with rapid ventricular rate. 3. Hallucinations most likely secondary to fever. PLAN: The patient had flu testing yesterday which was negative. Blood cultures were negative until now. He had been started on Zosyn and this was continued with a dose of 4.5 g along with vancomycin 2 g IV. The patient was given a bolus of normal saline due to soft blood pressure. The patient appeared improved after the fluid bolus. The case was discussed with Dr. Hopper, who agreed to accept the patient in transfer to [facility], he will be transferred to the ICU #1 as soon as transfer can be arranged. The patient's condition on transfer was stable and improved. CAMILLE/SALO /[id number]
--- NOTE | 2019-07-17 05:06 | CT ---
DATE OF SERVICE: 07/16/19 CLINICAL DATA: Hallucinations. UNENHANCED BRAIN CT: Multislice acquisition through the brain without IV contrast was performed. There is significant motion artifact degrading image quality. Comparison is made to a prior exam dated 08/05/16. I do not see any masses or mass effect. I do not see evidence of intracranial hemorrhage, however subtle hemorrhage cannot be excluded secondary to the significant motion artifact. No evidence of acute or subacute infarct. No osseous abnormalities. There is mild mucosal thickening in the ethmoid sinuses consistent with chronic sinusitis. IMPRESSION: Suboptimal exam related to motion artifact. Repeat exam is recommended. [id number] [facility]
--- NOTE | 2019-07-17 05:10 | CT ---
DATE OF SERVICE: 07/16/19 CLINICAL DATA: Investigate results. UNENHANCED CHEST CT: Multislice acquisition through the chest without IV contrast was performed. Comparison is made to a prior exam dated 07/15/19. There is extensive ground glass opacity with consolidation within the right lower lobe. The area of consolidation does appear to be clearer than on the prior exam. The ground glass opacity within the right lower lobe is more extensive than on the prior study. There is a small area of consolidation in the left lung base laterally that has not changed significantly from the prior exam. There is a persistent small right pleural effusion. The left pleural effusion on the prior study has decreased. No other interval changes. Continued followup is recommended. [id number] [facility]
== END 2019-07-16 22:45 ==
LOC: LB.ED 18:35
DX: I48.91 Unspecified atrial fibrillation (principal); C85.90 Non-Hodgkin lymphoma, unspecified, unspecified site; Z98.890 Other specified postprocedural states
CPT/HCPCS: 36415; 70450; 71250; 80053; 83605; 84484; 85025; 93005; 96365; 96366; 96367; 99285; A0425; A0429; A9270; J2543; J3370; J3490; J7030; J7050; 96375

== ENCOUNTER 2021-08-14 10:19 | Emergency (ER) | payer BC ==
[2021-08-14] MEDS: Aspirin 81 MG Tab.Chew PO ONE (10:37)
[2021-08-14] MEDS: Sodium Chloride 0.9% 50 ML SDV FLUSH SCH (13:00)
[2021-08-14] MEDS: Iopamidol 755 Mg/ML 100 ML Bottle IV PRN (13:00)
[2021-08-14 13:47] VITALS: BP 112/58; PULSE 82
[2021-08-14] MEDS: Sodium Chloride 0.9% 500 ML IV ONE (14:46)
== END 2021-08-14 15:32 | disposition home or self-care (01) ==
LOC: LB.ED 10:19
DX: I26.99 Other pulmonary embolism without acute cor pulmonale (principal); R91.1 Solitary pulmonary nodule; I50.9 Heart failure, unspecified; I48.91 Unspecified atrial fibrillation; Z79.899 Other long term (current) drug therapy; Z79.01 Long term (current) use of anticoagulants; Z20.822 Contact with and (suspected) exposure to COVID-19
CPT/HCPCS: 36415; 70450; 71045; 71270; 80053; 84484; 85025; 85379; 87635; 93005; 99285; A0425; A0429; A9270; J7040; Q9967; 99284; U0002

== ENCOUNTER 2021-08-29 09:08 | Emergency (ER) | payer BC ==
[2021-08-29 12:52] VITALS: BP 142/80; PULSE 81
== END 2021-08-29 11:21 | disposition home or self-care (01) ==
LOC: LB.ED 09:08
DX: K64.8 Other hemorrhoids (principal); K62.5 Hemorrhage of anus and rectum; R00.9 Unspecified abnormalities of heart beat; I48.91 Unspecified atrial fibrillation; E03.9 Hypothyroidism, unspecified; Z79.01 Long term (current) use of anticoagulants; Z79.899 Other long term (current) drug therapy
CPT/HCPCS: 36415; 80048; 85025; 93005; 93010; 99283; 99283-25

== ENCOUNTER 2022-08-28 18:30 | Emergency (ER) | payer BC ==
[2022-08-28] MEDS ORDERED: Sodium Chloride 0.9% 10 ML Syringe FLUSH PRN (18:38)
[2022-08-28] MEDS ORDERED: Sodium Chloride 0.9% 1,000 ML IV SCH (19:15)
[2022-08-28 19:45] LABS: TROPONIN I HIGH SENSITIVITY 142.1 pg/ml (<=60.4)
[2022-08-28] MEDS ORDERED: Sodium Chloride 0.9% 1,000 ML IV ONE (19:59)
[2022-08-28 21:12] VITALS: BP 125/67; PULSE 80
== END 2022-08-28 20:50 ==
LOC: LB.ED 18:31
DX: I49.8 Other specified cardiac arrhythmias (principal); I49.5 Sick sinus syndrome; R00.1 Bradycardia, unspecified; E03.9 Hypothyroidism, unspecified; Z86.711 Personal history of pulmonary embolism; Z79.01 Long term (current) use of anticoagulants; Z79.899 Other long term (current) drug therapy
CPT/HCPCS: 36415; 80048; 83735; 84100; 84484; 85027; 85379; 93005; 93010; 96361; 96365; 99285; 99285-25; J3475; J7030

== ENCOUNTER 2022-11-27 15:07 | Emergency (ER) | payer BC ==
[2022-11-27 15:18] VITALS: BP 135/74; PULSE 78
[2022-11-27] MEDS ORDERED: Diphtheria,Pertussis(Acell),Tetanus Vaccine 0.5 ML Syringe IM ONE (15:28)
[2022-11-27] MEDS ORDERED: Lidocaine 1% 5 ML VIAL INJECT ONE (15:29)
[2022-11-27] MEDS ORDERED: Bacitracin Oint 1 GM U/D Packet TOP ONE (15:54)
== END 2022-11-27 15:50 | disposition home or self-care (01) ==
LOC: LB.ED 15:07
DX: S81.011A Laceration without foreign body, right knee, initial encounter (principal); I48.91 Unspecified atrial fibrillation; E78.00 Pure hypercholesterolemia, unspecified; I10 Essential (primary) hypertension; E66.9 Obesity, unspecified; E03.9 Hypothyroidism, unspecified; Z79.899 Other long term (current) drug therapy; Z23 Encounter for immunization; Z79.01 Long term (current) use of anticoagulants; W45.8XXA Other foreign body or object entering through skin, initial encounter
CPT/HCPCS: 12001; 90471; 90715; 99282; 99282-25

== ENCOUNTER 2024-09-08 15:30 | Emergency (ER) | payer BC ==
[2024-09-08 16:57] LABS: HEMATOCRIT 40.7 % (40.0-54.0); HEMOGLOBIN 13.9 g/dL (13.0-18.0); MEAN CORPUSCULAR HEMOGLOBIN 30.5 pg (27.0-32.0); MEAN CORPUSCULAR HGB CONC 34.2 g/dL (31.0-35.0); MEAN PLATELET VOLUME 11.6 fL (6.0-10.0); RED BLOOD CELL COUNT 4.56 M/uL (4.50-6.50); RED CELL DISTRIBUTION WIDTH 14.9 % (11.0-16.0); WHITE BLOOD CELL COUNT,WBC 8.7 K/uL (4.0-11.0)
[2024-09-08 17:13] LABS: ANION GAP 12.6 mmol/L (5.0-15.0); BUN/CREATININE RATIO 13.2 (6-25); CALCIUM 9.5 mg/dL (8.5-10.1); CARBON DIOXIDE,CO2 32.2 mmol/L (21.0-32.0); CREATININE 1.44 mg/dL (0.70-1.30); EST CRCL DRUG DOSING (CG) 83.33 mL/min; POTASSIUM,K 3.8 mmol/L (3.5-5.1)
[2024-09-08] MEDS: Lactated Ringers 1,000 ML IV ONE (18:12)
[2024-09-08 20:11] LABS: ANION GAP 11.2 mmol/L (5.0-15.0); BUN/CREATININE RATIO 14.1 (6-25); CALCIUM 9.3 mg/dL (8.5-10.1); CARBON DIOXIDE,CO2 31.4 mmol/L (21.0-32.0); CREATININE 1.28 mg/dL (0.70-1.30); EST CRCL DRUG DOSING (CG) 93.75 mL/min; POTASSIUM,K 3.6 mmol/L (3.5-5.1)
[2024-09-08 20:15] LABS: TROPONIN I HIGH SENSITIVITY 96.6 pg/ml (<=60.4)
[2024-09-09 00:13] VITALS: BP 130/87; PULSE 93
== END 2024-09-08 23:14 ==
LOC: LB.ED 15:30
DX: I49.5 Sick sinus syndrome (principal); N17.9 Acute kidney failure, unspecified; R79.89 Other specified abnormal findings of blood chemistry; I10 Essential (primary) hypertension; E78.00 Pure hypercholesterolemia, unspecified; E03.9 Hypothyroidism, unspecified; E66.9 Obesity, unspecified; Z79.01 Long term (current) use of anticoagulants; Z79.899 Other long term (current) drug therapy; Z79.02 Long term (current) use of antithrombotics/antiplatelets; Z91.048 Other nonmedicinal substance allergy status; Z95.0 Presence of cardiac pacemaker; Z68.38 Body mass index [BMI] 38.0-38.9, adult
CPT/HCPCS: 36415; 80048; 84484; 85027; 93005; 93010; 96360; 99285; 99285-25; A0425; A0428; J7120